=== PATIENT | female | born 1945 | race Caucasian/White ===

== ENCOUNTER → 2018-06-28 14:06 | Outpatient (CLI) | payer MEDICARE, OTHER, SELFPAY ==
--- NOTE | 2018-06-28 | DI.MG.S_ITS ---
BILATERAL DIGITAL SCREENING MAMMOGRAM 3D/2D WITH CAD: 06/28/2018 Comparison is made to exams dated: 06/27/2017 mammogram, 06/26/2016 mammogram, and 06/25/2015 mammogram - [facility]. The tissue of both breasts is predominantly fatty. Current study was also evaluated with a Computer Aided Detection (CAD) system. No significant masses, calcifications, or other findings are seen in either breast. There has been no significant interval change. IMPRESSION: NEGATIVE There is no mammographic evidence of malignancy. A 1 year screening mammogram is recommended. This exam was interpreted at Station ID: [id number]. NOTE: For mammograms, a report in lay terms will be sent to the patient. Approximately 15% of breast malignancies will not be visualized mammographically. In the management of a palpable breast mass, a negative mammogram must not discourage biopsy of a clinically suspicious lesion. Electronically Signed By: Skylar arellano/bubba:06/29/2018 10:25:15 letter sent: Normal Exam ACR BI-RADS Category 1: Negative 3341F
== END ==
PROVIDERS: Family Provider Nurse Practitioner Family; PCP Nurse Practitioner Family; Visit Provider Nurse Practitioner Family
DX: Z12.31 Encounter for screening mammogram for malignant neoplasm of breast (principal)
CPT/HCPCS: 77063; 77067

== ENCOUNTER → 2018-11-16 16:02 | Outpatient (CLI) | payer MEDICARE, OTHER, SELFPAY ==
--- NOTE | 2018-11-16 16:08 | DI.RAD.S_ITS ---
PROCEDURE: XR THORACIC SPINE 3V INDICATIONS: BILATERAL THORACIC BACK PAIN S/P HORSEBACK RIDING NO HISTORY TECHNIQUE: 3 views of the thoracic spine were acquired. COMPARISON: [facility], CT, PE STUDY (CTA CHEST), 05/29/2013, 10:29. FINDINGS: Bones: A fracture of approximately T4 appears chronic. A impression of the superior endplate of T5 is likely acute. Soft tissues: No paravertebral stripe thickening. IMPRESSION: Probable chronic compression fracture of T4. Probable acute compression fracture of T5. Comment: Consider MRI of the thoracic spine to identify acute compression fractures. Dictated by: Shayne Nichols M.D. on 11/16/2018 at 17:40 Approved by: Shayne Nichols M.D. on 11/16/2018 at 17:43
--- NOTE | 2018-11-16 16:10 | DI.RAD.S_ITS ---
PROCEDURE: XR RIBS BI MIN 4V W CXR1V INDICATIONS: BILATERAL THORACIC BACK PAIN S/P HORSEBACK RIDING NO HISTORY TECHNIQUE: 4 views of the left and right ribs were acquired, along with a single view chest. COMPARISON: [facility], , CHEST 1 VIEW, 05/29/2013, 9:14. FINDINGS: Surgical changes and devices: None. Bones and chest wall: Multiple chronic-appearing right rib fractures. No definite acute fracture seen. Lungs and pleura: No pleural effusions or pneumothorax. No acute consolidation. Scattered subsegmental atelectasis and/or scarring . Mediastinum: Mediastinal contours appear normal. Heart size is normal. IMPRESSION: No acute fracture. Multiple radiographically chronic appearing right rib fractures. If clinically indicated, further assessment with noncontrast chest CT could be considered if the patient's symptoms do not improve Dictated by: Jimmy Mota M.D. on 11/17/2018 at 10:02 Approved by: Jimmy Mota M.D. on 11/17/2018 at 10:07
== END ==
PROVIDERS: Visit Provider Nurse Practitioner Family
DX: M54.6 Pain in thoracic spine (principal); S22.41XA Multiple fractures of ribs, right side, initial encounter for closed fracture; S22.049A Unspecified fracture of fourth thoracic vertebra, initial encounter for closed fracture; X58.XXXA Exposure to other specified factors, initial encounter
CPT/HCPCS: 71111; 72072

== ENCOUNTER 2019-03-23 10:42 | Day surgery (SDC) | payer MEDICARE, OTHER, SELFPAY ==
[2019-03-23 11:17] VITALS: BP 150/76; PULSE 67; RESP 17; TEMP 36.8; O2SAT 99; BMI 23.1
[2019-03-23] MEDS: SODIUM CHLORIDE 0.9% 1,000 ML 150 ML IV (11:44)
--- NOTE | 2019-03-23 12:26 | PM.HP.1 ---
History of Present Illness History of Present Illness Date Patient Seen: 03/23/19 Time Patient Seen: 12:26 Chief complaint: [id number] COLONOSCOPY W/POSS Narrative: History of adenomatous colon polyps with a large hepatic flexure polyp found last year. Need for follow-up colonoscopy. Patient History Social History household members: spouse Family & Social History Social History: household members spouse Meds Home Medications and Allergies Home Medications Medication Instructions Recorded Confirmed Type VITAMIN D (Vitamin D3) 1,000 unit PO DAILY #0 12/04/16 03/23/19 History [CALCIUM] 1 tab PO DAILY #0 12/04/16 03/23/19 History aspirin 1 tab PO QDAY #0 12/04/16 03/23/19 History glucosamine sulfate [Genicin] 1,000 mg PO DAILY #0 12/04/16 03/23/19 History simvastatin 1 tab PO QDAY #0 12/04/16 03/23/19 History levothyroxine 100 mcg PO DAILY 03/23/19 03/23/19 History Allergies Allergy/AdvReac Type Severity Reaction Status Date / Time No Known Drug Allergies Allergy Verified 03/22/19 13:37 Exam Vital Signs (past 8 hours): - 03/23/19 11:17 Temperature 98.2 F Pulse Rate 67 Respiratory Rate 17 Blood Pressure 150/76 H Pulse Oximetry 99 Oxygen Delivery Method Room Air Narrative Exam Narrative: Oropharynx free of lesions Chest clear to auscultation percussion Cardiac exam reveals no S3 or murmur Assessment & Plan Assessment & Plan narrative: History of adenomatous colon polyps with a quite large polyp found last year. Need for follow-up colonoscopy. Risks, benefits, alternatives have been explained.
--- NOTE | 2019-03-23 12:28 | PM.OP.ENDO ---
Operative Date/Time/Diagnoses Date of procedure: 03/23/19 Time of procedure: 12:28 Pre-op diagnosis: See indication and findings Procedure & Clinicians Study performed: Colonoscopy Same procedure as scheduled: Yes Indications: History of polyps Surgeon: Deepika De La Vega Procedure Notes Procedure in detail: After informed consent was obtained the patient was placed in the left lateral decubitus position. The video colonoscope was introduced the rectum and slowly advanced to the cecum. On slow withdrawal mucosa was carefully examined. Preparation was good. The scope was removed. The patient tolerated procedure well. Blood loss none Complications none Sedation Total sedation time 18 minutes Versed 5 mg fentanyl 100 micro g IV titration Findings 1. Tattoo from previous large polypectomy at the hepatic flexure seen. No residual polyp 2. Otherwise negative colonoscopy to cecum. Patient needs follow-up colonoscopy in 5 years.
[2019-03-23] MEDS: fentaNYL 250 MCG/5 ML INJ IV (13:07)
[2019-03-23] MEDS: MIDAZOLAM 5 MG/5 ML VIAL IV (13:07)
[2019-03-23 13:10] VITALS: BP 127/61; PULSE 79; RESP 18; TEMP 36.2; O2SAT 97
[2019-03-23 13:35] VITALS: BP 139/82; PULSE 82; RESP 19; TEMP 36.8; O2SAT 96
== END 2019-03-23 13:43 | disposition home or self-care (01) ==
PROVIDERS: PCP Nurse Practitioner Family; Visit Provider Internal Medicine Gastroenterology
PROC: 0DJD8ZZ Inspection of Lower Intestinal Tract, Via Natural or Artificial Opening Endoscopic (ICD-10-PCS; CPT 45378; principal; 2019-03-23 12:30)
DX: Z86.010 Personal history of colon polyps (principal)
CPT/HCPCS: G0105; J2250; J3010

== ENCOUNTER → 2019-05-03 13:36 | Outpatient (CLI) | payer MEDICARE, OTHER, SELFPAY | PROVIDERS: PCP Nurse Practitioner Family; Visit Provider Nurse Practitioner Family | DX: M85.852 Other specified disorders of bone density and structure, left thigh (principal); Z78.0 Asymptomatic menopausal state; E07.9 Disorder of thyroid, unspecified; E67.3 Hypervitaminosis D; Z82.62 Family history of osteoporosis | CPT/HCPCS: 77080 ==

== ENCOUNTER → 2019-07-14 11:22 | Outpatient (CLI) | payer MEDICARE, OTHER, SELFPAY ==
--- NOTE | 2019-07-14 | DI.MG.S_ITS ---
BILATERAL DIGITAL SCREENING MAMMOGRAM 3D/2D WITH CAD: 07/14/2019 CLINICAL: Routine screening. Comparison is made to exams dated: 06/28/2018 mammogram, 06/27/2017 mammogram, 06/26/2016 mammogram, 06/25/2015 mammogram, 06/02/2014 mammogram - [facility], and 05/19/2011 mammogram - [facility]. The tissue of both breasts is predominantly fatty. Current study was also evaluated with a Computer Aided Detection (CAD) system. No significant masses, calcifications, or other findings are seen in either breast. There has been no significant interval change. IMPRESSION: NEGATIVE There is no mammographic evidence of malignancy. A 1 year screening mammogram is recommended. This exam was interpreted at Station ID: [id number]. NOTE: For mammograms, a report in lay terms will be sent to the patient. Approximately 15% of breast malignancies will not be visualized mammographically. In the management of a palpable breast mass, a negative mammogram must not discourage biopsy of a clinically suspicious lesion. Electronically Signed By: Antonio pacheco/bubba:07/15/2019 13:39:38 letter sent: Normal Exam ACR BI-RADS Category 1: Negative 3341F
== END ==
PROVIDERS: PCP Nurse Practitioner Family; Visit Provider Nurse Practitioner Family
DX: Z12.31 Encounter for screening mammogram for malignant neoplasm of breast (principal)
CPT/HCPCS: 77063; 77067

== ENCOUNTER → 2020-07-20 08:14 | Outpatient (CLI) | payer MEDICARE, OTHER, SELFPAY ==
--- NOTE | 2020-07-20 | DI.MG.S_ITS ---
BILATERAL DIGITAL SCREENING MAMMOGRAM 3D/2D WITH CAD: 07/20/2020 CLINICAL: Routine screening. Comparison is made to exams dated: 07/14/2019 mammogram, 06/28/2018 mammogram, and 06/27/2017 mammogram - [facility]. There are scattered fibroglandular elements in both breasts. Current study was also evaluated with a Computer Aided Detection (CAD) system. No significant masses, calcifications, or other findings are seen in either breast. There has been no significant interval change. IMPRESSION: NEGATIVE There is no mammographic evidence of malignancy. A 1 year screening mammogram is recommended. This exam was interpreted at Station ID: [id number]. NOTE: For mammograms, a report in lay terms will be sent to the patient. Approximately 15% of breast malignancies will not be visualized mammographically. In the management of a palpable breast mass, a negative mammogram must not discourage biopsy of a clinically suspicious lesion. Electronically Signed By: Umberto fragoso/bubba:07/20/2020 08:56:21 letter sent: Normal Exam ACR BI-RADS Category 1: Negative 3341F
== END ==
PROVIDERS: PCP Student in an Organized Health Care Education/Training Program; Referring Provider Student in an Organized Health Care Education/Training Program; Visit Provider Student in an Organized Health Care Education/Training Program
DX: Z12.31 Encounter for screening mammogram for malignant neoplasm of breast (principal)
CPT/HCPCS: 77063; 77067

== ENCOUNTER → 2020-11-15 09:53 | Outpatient (CLI) | payer MEDICARE, OTHER, SELFPAY ==
--- NOTE | 2020-11-15 10:55 | DIET.PN ---
Nutrition Initial Assessment:? ASSESS:???Ms. Guan is a 75 yof referred for long standing hx of pre-diabetes. She reports regular moderate-intense exercise including rowing and speed walking and healthy eating habits. Admits to having a sweet tooth. She has countied calories in the past, but does not often pay attention to carbs/sugar. She monitors her blood glucose periodically with typical readings between 80-110. ? LABS: Per pt report:? A1c: 6.1 (6.3 at dx) ? MEDS:?? n/a ? DIET: Per 24-hour recall:? B: sourdough toast w/ butter L: 1 cup chicken salad sandw or PB J sandw D: asparagus and potato soup Sn: fruit, crackers, smoothies ? Weight: 143 lb UBW: 135lb Ht:? 66 in BMI: 42.7 ? Exercise:?rowing, walking NUTRITION DX 1. Altered Nutrition related labs related to impaired glucose metabolism, lack of previous exposure to accurate nutrition information as evidenced by pt report, dx of pre-diabetes, previous diet high in refined carbohydrates.? INTERVENTION(s): 1. Discussed pathophysiology of diabetes/hyperglycemia and impact of nutrition/diet on blood sugar control.? 2. Discussed the effect of carbohydrates/protein/fat on blood sugar control.? Stressed importance of consistent carbohydrate intake at each meal and provided instructions for recommended servings/portions of carbohydrates/protein per meal. Provided pt with educational material. 3. Reviewed carbohydrate counting and measuring carbohydrate content via serving sizes and reading nutrition labels.? Provided handouts.?? 4. Discussed the difference between simple versus complex carbohydrates and the effect of fiber on blood sugar control.? Discussed various methods to increase fiber content in diet. 5. Stressed importance of meal timing and not going >4-5 hours between meals. Encouraged adding protein to snacks to support glucose control and prevent hunger. Discussed various snack options. 6. Discussed importance of food preparation to encourage healthy eating, portion control, and prevent hunger/over snacking. Compiled a list of grab and go foods for breakfast and snack ideas. 7. Discussed healthy weight loss goals of 1-2lbs per week through diet and exercise.? Pt agreeable to keeping a daily food record including portions. Goals: 1. Pt goal to maintain A1c <6.0 without the use of medications. Agrees to dietary improvements, carb counting, and limiting sugary snacks. MONITOR/EVALUATE: Anticipate excellent compliance.? Pt will follow up following new labs.
== END ==
PROVIDERS: PCP Student in an Organized Health Care Education/Training Program; Referring Provider Student in an Organized Health Care Education/Training Program; Visit Provider Student in an Organized Health Care Education/Training Program
DX: R73.03 Prediabetes (principal)
CPT/HCPCS: 97802

== ENCOUNTER → 2021-05-31 11:03 | Outpatient (CLI) | payer MEDICARE, OTHER, SELFPAY ==
--- NOTE | 2021-05-31 11:31 | DI.RAD.S_ITS ---
PROCEDURE: XR DEXA AXIAL SKELETON INDICATIONS: Osteoporosis COMPARISON: [facility], CR, XR DEXA AXIAL SKELETON, 05/03/2019, 14:17. FINDINGS: This blank DEXA report has been sent in error by the PACS system. The correct and complete report will be forthcoming in 1-2 days. Thank you for your patience and understanding. Dictated by: Samara Gordon MD, PhD on 05/31/2021 at 16:19 Approved by: Samara Gordon MD, PhD on 05/31/2021 at 16:19
== END ==
PROVIDERS: PCP Student in an Organized Health Care Education/Training Program; Referring Provider Family Medicine; Visit Provider Family Medicine
DX: M81.0 Age-related osteoporosis without current pathological fracture (principal); Z78.0 Asymptomatic menopausal state; E07.9 Disorder of thyroid, unspecified; Z82.62 Family history of osteoporosis
CPT/HCPCS: 77080; 77081

== ENCOUNTER → 2022-05-20 15:06 | Outpatient (CLI) | payer MEDICARE, OTHER, SELFPAY | PROVIDERS: PCP Student in an Organized Health Care Education/Training Program; Referring Provider Internal Medicine; Visit Provider Internal Medicine | DX: Z78.0 Asymptomatic menopausal state (principal); M81.0 Age-related osteoporosis without current pathological fracture; Z79.83 Long term (current) use of bisphosphonates | CPT/HCPCS: 77080 ==

== ENCOUNTER → 2022-07-29 10:59 | Outpatient (CLI) | payer MEDICARE, OTHER, SELFPAY ==
--- NOTE | 2022-07-29 | DI.MG.S_ITS ---
BILATERAL DIGITAL SCREENING MAMMOGRAM 3D/2D WITH CAD: 07/29/2022 CLINICAL: Routine screening. Comparison is made to exams dated: 07/20/2020 mammogram, 07/14/2019 mammogram, and 06/28/2018 mammogram - [facility]. There are scattered areas of fibroglandular density in both breasts (category b / 25%-50% glandular tissue). Current study was also evaluated with a Computer Aided Detection (CAD) system. No significant masses, calcifications, or other findings are seen in either breast. There has been no significant interval change. IMPRESSION: NEGATIVE There is no mammographic evidence of malignancy. A 1 year screening mammogram is recommended. Based on the Tyrer Cuzick model (a risk assessment model) the patient's lifetime risk is 3.6% and her 10 year risk is 0.0%. According to the ACR, ACS, and NCCN guidelines, an annual breast MRI exam along with mammogram is recommended if the patient's lifetime risk is 20% or greater. This exam was interpreted at Station ID: [id number]. NOTE: For mammograms, a report in lay terms will be sent to the patient. Approximately 15% of breast malignancies will not be visualized mammographically. In the management of a palpable breast mass, a negative mammogram must not discourage biopsy of a clinically suspicious lesion. Electronically Signed By: Ran gonzalez/bubba:07/29/2022 17:39:45 letter sent: Normal Exam ACR BI-RADS Category 1: Negative 3341F
== END ==
PROVIDERS: PCP Family Medicine; Referring Provider Family Medicine; Visit Provider Family Medicine
DX: Z12.31 Encounter for screening mammogram for malignant neoplasm of breast (principal)
CPT/HCPCS: 77063; 77067

== ENCOUNTER → 2023-06-16 12:31 | Outpatient (CLI) | payer MEDICARE, OTHER, SELFPAY ==
--- NOTE | 2023-06-16 | DI.RAD.S_ITS ---
PROCEDURE: XR CHEST 2V INDICATIONS: COUGH TECHNIQUE: 2 views of the chest were acquired. COMPARISON: [facility], , CHEST 1 VIEW, 05/29/2013, 9:14. FINDINGS: Surgical changes and devices: None. Lungs and pleura: Lungs are clear. No pleural effusions or pneumothorax. Mediastinum: Mediastinal contours are normal. Heart size is normal. Bones and chest wall: No suspicious bony abnormalities. Anterior wedge compression deformities of midthoracic vertebral bodies. Soft tissues appear unremarkable. IMPRESSION: No acute cardiopulmonary abnormality is seen. Anterior wedge compression deformities of midthoracic vertebral bodies, if concern for acute fracture, correlate for point tenderness or consider MRI. Dictated by: Rakesh Grady M.D. on 06/16/2023 at 14:06 Approved by: Rakesh Grady M.D. on 06/16/2023 at 14:25
== END ==
PROVIDERS: PCP Family Medicine; Referring Provider Internal Medicine; Visit Provider Internal Medicine
DX: R05.3 Chronic cough (principal); M43.8X4 Other specified deforming dorsopathies, thoracic region
CPT/HCPCS: 71046

== ENCOUNTER → 2023-07-31 16:47 | Outpatient (CLI) | payer MEDICARE, OTHER, SELFPAY ==
--- NOTE | 2023-07-31 16:51 | DI.MG.S_ITS ---
BILATERAL DIGITAL SCREENING MAMMOGRAM 3D/2D WITH CAD: 07/31/2023 CLINICAL: Routine screening. Comparison is made to exams dated: 07/29/2022 mammogram, 07/20/2020 mammogram, and 07/14/2019 mammogram - [facility]. There are scattered areas of fibroglandular density in both breasts (category b / 25%-50% glandular tissue). Current study was also evaluated with a Computer Aided Detection (CAD) system. No significant masses, calcifications, or other findings are seen in either breast. There has been no significant interval change. IMPRESSION: NEGATIVE There is no mammographic evidence of malignancy. A 1 year screening mammogram is recommended. Based on the Tyrer Cuzick model (a risk assessment model) the patient's lifetime risk is 3.2% and her 10 year risk is 0.0%. According to the ACR, ACS, and NCCN guidelines, an annual breast MRI exam along with mammogram is recommended if the patient's lifetime risk is 20% or greater. This exam was interpreted at Station ID: [id number]. NOTE: For mammograms, a report in lay terms will be sent to the patient. Approximately 15% of breast malignancies will not be visualized mammographically. In the management of a palpable breast mass, a negative mammogram must not discourage biopsy of a clinically suspicious lesion. Electronically Signed By: Ran gonzalez/bubba:08/03/2023 07:41:52 letter sent: Normal Exam ACR BI-RADS Category 1: Negative 3341F
== END ==
LOC: MAMMO 16:50
PROVIDERS: PCP Family Medicine; Referring Provider Internal Medicine; Visit Provider Internal Medicine
DX: Z12.31 Encounter for screening mammogram for malignant neoplasm of breast (principal)
CPT/HCPCS: 77063; 77067

== ENCOUNTER → 2024-07-22 09:09 | Outpatient (CLI) | payer MEDICARE, OTHER, SELFPAY ==
[2024-07-22 09:52] LABS: Add Manual Diff / Slide Review NO; Basophils Absolute Auto 0 /uL (0-100); Basophils Percent Auto 0.4 % (0-2); Eosinophils Absolute Auto 100 /uL (0-450); Eosinophils Percent Auto 2.2 % (2-4); Hematocrit 40.1 % (36-46); Hemoglobin 13.5 g/dL (12.0-16.0); Lymphocytes Absolute Auto 1900 /uL (1100-4500); Lymphocytes Percent Auto 33.9 % (25-40); Mean Corpuscular HGB Conc 33.7 % (30-36); Mean Corpuscular Hemoglobin 31.7 PG (26-34); Monocytes Absolute Auto 700 /uL (0-900); Monocytes Percent Auto 11.4 % (3-14); Neutrophils Absolute Auto 3000 /uL (1500-7000); Neutrophils Percent Auto 52.1 % (50-75); Platelet Count 197 X10^3/uL (150-400); Red Blood Cell Count 4.26 X10^6/uL (4.0-5.2); Red Cell Distribution Width 14.4 % (11.6-14.8); White Blood Cell Count 5.7 X10^3/uL (4.5-11.0)
[2024-07-22 10:19] LABS: Alanine Aminotransferase 19 IU/L (<35); Albumin Globulin Ratio 1.4 (1.0-2.8); Alkaline Phosphatase 50 U/L (38-126); Aspartate Aminotransferase 29 IU/L (14-36); BUN Creatinine Ratio 21.8 (6-22); Bilirubin Total 0.9 mg/dL (0.2-1.3); Blood Urea Nitrogen 19 mg/dL (7-17); Calcium 9.4 mg/dL (8.4-10.2); Carbon Dioxide 28 mmol/L (22-32); Chloride 105 mmol/L (98-107); Cholesterol 186 mg/dL (140-199); Estimated Glomerular Filt Rate > 60 mL/min (>60); Globulin 2.9 g/dL (1.7-4.1); Glucose 90 mg/dL (80-110); HDL Cholesterol 74 mg/dL (40-60); HEMOLYSIS < 15 (0-50); LDL Cholesterol Calculated 99 mg/dL (<100); Potassium 4.7 mmol/L (3.4-5.1); Sodium 136 mmol/L (137-145); Total Protein 6.9 g/dL (6.3-8.2); Triglycerides 67 mg/dL (35-150)
[2024-07-22 11:22] LABS: Free T3, Triiodothyronine Free 3.09 pg/mL (2.77-5.27); Free T4, Direct Thyroxine 1.65 ng/dL (0.78-2.19)
[2024-07-22 11:36] LABS: Thyroid Stimulating Hormone 1.31 uIU/mL (0.47-4.68)
== END ==
PROVIDERS: PCP Student in an Organized Health Care Education/Training Program; Referring Provider Student in an Organized Health Care Education/Training Program; Visit Provider Student in an Organized Health Care Education/Training Program
DX: I10 Essential (primary) hypertension (principal)
CPT/HCPCS: 36415; 80053; 80061; 84439; 84443; 84481; 85025

== ENCOUNTER → 2024-08-08 10:52 | Outpatient (CLI) | payer MEDICARE, OTHER, SELFPAY ==
--- NOTE | 2024-08-08 10:56 | DI.RAD.S_ITS ---
PROCEDURE: XR DEXA AXIAL SKELETON INDICATIONS: Hx of osteopenia COMPARISON: [facility], , XR DEXA AXIAL SKELETON, 05/20/2022, 16:30. [facility], CR, XR DEXA AXIAL SKELETON, 05/31/2021, 11:33. FINDINGS: Lumbar Spine (L2 excluded): Bone mineral density 1.130 g/cm2, T score 0.7, previously 0.5. Left Femoral Neck: Bone mineral density 0.607 g/cm2, T score -2.2. Left Hip: Bone mineral density 0.812 g/cm2, T score -1.1, previously -1.0. Fracture Risk Calculation (when applicable): Secondary osteoporosis noted . 10-year fracture risk of a major osteoporotic fracture 15 percent and of a hip fracture 4.8 percent. (T score greater or equal to -1.0 to: NORMAL) (T score from -1.1 to -2.4: OSTEOPENIA) (T score less than or equal to -2.5: OSTEOPOROSIS) IMPRESSION: Osteopenia . Follow-up guidelines as follows: Osteoporosis: Consider a repeat DEXA and Vertebral Fracture Assessment (VFA) exam in 2 years or sooner if medically necessary, to reassess this patient's status. Osteopenia: Consider a repeat DEXA in 2-3 years to reassess this patient's status, or if there is a new clinical indication. Normal: Consider a repeat DEXA in 5 years or sooner, or if there is a new clinical indication. All treatment decisions require clinical judgment and consideration of individual patient factors, including patient preferences, comorbidities, previous drug use, risk factors not captured in the FRAX model (e.g., frailty, falls, vitamin D deficiency, increased bone turnover, interval significant decline in bone density ) and possible under- or over-estimation of fracture risk by FRAX. In addition, the NOF Guide recommends that FDA-approved medical therapies be considered in postmenopausal women and men age >= 50 years with a: * Hip or vertebral (clinical or morphometric) fracture * T-score of <=-2.5 at the spine or hip * Ten-year fracture probability by FRAX of >= 3% for hip fracture or >=20% for major osteoporotic fracture. Dictated by: Reji Hoffman M.D. on 08/08/2024 at 14:47 Approved by: Reji Hoffman M.D. on 08/08/2024 at 14:53
--- NOTE | 2024-08-08 11:11 | DI.MG.S_ITS ---
BILATERAL DIGITAL SCREENING MAMMOGRAM 3D/2D WITH CAD: 08/08/2024 CLINICAL: Routine screening. Comparison is made to exams dated: 07/31/2023 mammogram, 07/29/2022 mammogram, and 07/20/2020 mammogram - [facility]. There are scattered areas of fibroglandular density (category b / 25%-50% glandular tissue). Current study was also evaluated with a Computer Aided Detection (CAD) system. No significant masses, calcifications, or other findings are seen in either breast. There has been no significant interval change. IMPRESSION: NEGATIVE There is no mammographic evidence of malignancy. A 1 year screening mammogram is recommended. Based on the Tyrer Cuzick model (a risk assessment model) the patient's lifetime risk is 2.8% and her 10 year risk is 0.0%. According to the ACR, ACS, and NCCN guidelines, an annual breast MRI exam along with mammogram is recommended if the patient's lifetime risk is 20% or greater. This exam was interpreted at Station ID: [id number]. NOTE: For mammograms, a report in lay terms will be sent to the patient. Approximately 15% of breast malignancies will not be visualized mammographically. In the management of a palpable breast mass, a negative mammogram must not discourage biopsy of a clinically suspicious lesion. Electronically Signed By: Ran gonzalez/bubba:08/08/2024 16:34:25 letter sent: Normal Exam ACR BI-RADS Category 1: Negative
== END ==
LOC: MAMMO 10:56
PROVIDERS: PCP Student in an Organized Health Care Education/Training Program; Referring Provider Student in an Organized Health Care Education/Training Program; Visit Provider Student in an Organized Health Care Education/Training Program
DX: Z12.31 Encounter for screening mammogram for malignant neoplasm of breast (principal); M85.852 Other specified disorders of bone density and structure, left thigh
CPT/HCPCS: 77063; 77067; 77080

== ENCOUNTER 2024-08-15 09:29 | Day surgery (SDC) | payer MEDICARE, OTHER, SELFPAY ==
[2024-08-15 10:37] VITALS: BP 148/80; PULSE 90; RESP 16; TEMP 36.1; O2SAT 99
--- NOTE | 2024-08-15 10:56 | P.HP_ITS ---
History of Present Illness History of Present Illness Date Patient Seen: 08/15/24 Time Patient Seen: 10:56 Chief complaint: Screening Colonoscopy Narrative: 79-year-old white female with past history of multiple polyps. No changes in health or bowel movements. [facility] Medical History (Updated 08/15/24 @ 10:57 by José Bueno MD) Personal history of colonic polyps Dry skin Scoliosis Osteoporosis Osteopenia Fractures Malaria (~1969) Chicken pox Cataracts, bilateral Painful menstrual periods Heavy menstrual period GERD (gastroesophageal reflux disease) Skin cancer Hypothyroidism Surgical History Anesthesia History of cataract removal with insertion of prosthetic lens (~2016) History of section (~03/25/81) Family History Father History of heart disease Mother Cancer Grandmother Stroke Grandfather History of heart disease Daughter Food allergy Social History household members: spouse Smoking Status: Never smoker alcohol intake: current Meds Home Medications and Allergies Home Medications Medication Instructions Recorded Confirmed Type VITAMIN D (Vitamin D3) 1,000 unit PO DAILY ##0 12/04/17 07/22/24 History [CALCIUM] 2 tab PO DAILY ##0 07/22/24 History alendronate 70 mg tablet 70 mg PO QWEEK 07/22/24 07/22/24 History atorvastatin 20 mg tablet 20 mg PO DAILY 07/22/24 07/22/24 History glucosamine sulfate 500 mg capsule 500 mg PO DAILY #0 caps 07/22/24 07/22/24 History (Genicin) levothyroxine 100 mcg tablet 88 mcg PO DAILY 07/22/24 07/22/24 History lisinopril 10 mg tablet 10 mg PO DAILY 07/22/24 07/22/24 History sodium,potassium,mag sulfates 17.5 See Rx Instructions PO .COMPLEX 07/27/24 Rx gram-3.13 gram-1.6 gram oral soln #354 mL (Suprep Bowel Prep Kit) Allergies Allergy/AdvReac Type Severity Reaction Status Date / Time No Known Drug Allergies Allergy Verified 08/15/24 10:34 Review of Systems Review of Systems ROS: Yes All systems reviewed with the patient and are negative except as otherwise documented Exam Vital Signs (past 8 hours): - 08/15/24 10:37 Temperature 97 F L Pulse Rate 90 Respiratory Rate 16 Blood Pressure 148/80 H Pulse Oximetry 99 Oxygen Delivery Method Room Air Oxygen Delivery Method Room Air Narrative Exam Narrative: Gen: NAD, sitting comfortably in bed, appears well HEENT: Sclera are anicteric, head is normocephalic and atraumatic, trachea is midline. CV: RRR, no JVD Resp: clear to auscultation bilaterally, equal chest wall movement bilaterally Abd: soft, nontender, normoactive bowel sounds Ext: no edema, full range of motion Neuro: Cranial nerves II-XII grossly intact, no focal deficits Skin: No erythema or ecchymosis Assessment & Plan Assessment and plan (1) Personal history of colonic polyps: Status: Acute Assessment & Plan narrative: Patient presents for colonoscopy Risks, benefits, alternatives to colonoscopy explained, including but not limited to bowel perforation or other serious complication requiring surgery at less than 1 in 5000 colonoscopies, abdominal pain, cramping or bleeding and less than 1% of colonoscopies, and the chances that we find a diagnosis that would require further intervention of about 2%. Patient agrees to proceed. Time-Based Coding :: [TOTAL MINUTES] spent with patient and on the chart (including review of chart, obtaining history, exam, reviewing outside data, placing orders, documenting exam and treatment plan, and counseling patient) on [DATE]. PROFEE Sales Service Technician Document charge(s): No
--- NOTE | 2024-08-15 11:45 | PM.OP.COLON ---
Operative Date/Time/Diagnoses Date of procedure: 08/15/24 Time of procedure: 11:45 Pre-op diagnosis: Personal history of polyps Post-op diagnosis: other (Normal colonoscopy) Procedure & Clinicians Study performed: Colonoscopy Same procedure as scheduled: Yes Indications: Personal history of polyps Surgeon: José Bueno Procedure Notes SCOAP/Timeout: Performed Procedure in detail: Time-out was performed. Mac was induced. Patient was placed in left lateral decubitus position. The perineum was inspected without any gross abnormality. Lubricated pediatric colonoscope was inserted and advanced to the cecum. Was technically difficult due to tortuosity near the hepatic flexure that required both a stiffening wire and repositioning of the patient 1st supine position which was unsuccessful and then to the prone position which allowed successful intubation of the cecum and terminal ileum. The terminal ileum was intubated. The colonoscope was withdrawn slowly inspecting the circumference of the colon. Very small polyps may have been missed, prep quality was adequate. Retroflexed view of the rectum showed small, non prolapsed nonbleeding internal hemorrhoids. The scope was withdrawn the patient was taken to PACU in good condition. Scope withdrawal time: 6 Sedation minutes: 35 Specimen(s): none sent Complications: none Impression: Normal colonoscopy Post-procedure Recommendations: Colonoscopy in 10 years (Patient would be 89 in 10 years, likely no future colonoscopy is required.) Follow up: as needed Disposition: PACU
[2024-08-15 11:50] VITALS: BP 95/59; PULSE 81; RESP 18; TEMP 36.4; O2SAT 96
[2024-08-15 12:05] VITALS: BP 105/69; PULSE 85; RESP 20; TEMP 36.6; O2SAT 98
== END 2024-08-15 12:30 | disposition home or self-care (01) ==
PROVIDERS: PCP Student in an Organized Health Care Education/Training Program; Referring Provider Surgery; Visit Provider Surgery
PROC: 0DJD8ZZ Inspection of Lower Intestinal Tract, Via Natural or Artificial Opening Endoscopic (ICD-10-PCS; CPT 45378; principal; 2024-08-15 10:30)
DX: Z12.11 Encounter for screening for malignant neoplasm of colon (principal); Z86.0100 Personal history of colon polyps, unspecified
CPT/HCPCS: G0105; J2704

== ENCOUNTER → 2025-04-27 10:34 | Outpatient (CLI) | payer MEDICARE, OTHER, SELFPAY ==
--- NOTE | 2025-04-27 10:37 | DI.RAD.S_ITS ---
PROCEDURE: XR CHEST 2V INDICATIONS: concern for rib fracture TECHNIQUE: 2 views of the chest were acquired. COMPARISON: [facility], CR, XR CHEST 2V, 06/16/2023, 13:10. FINDINGS AND IMPRESSION: No definite pneumothorax is seen. Mild osseous deformities are seen in the right lateral mid ribs, though these may have been present previously. Correlate with location of tenderness. Unchanged cardiomediastinal contours. Height loss of multiple thoracic vertebral bodies, age-indeterminate, likely also present previously Dictated by: Rey Naqvi M.D. on 04/27/2025 at 11:13 Approved by: Rey Naqvi M.D. on 04/27/2025 at 11:15
== END ==
PROVIDERS: PCP Student in an Organized Health Care Education/Training Program; Referring Provider Student in an Organized Health Care Education/Training Program; Visit Provider Student in an Organized Health Care Education/Training Program
DX: R07.89 Other chest pain (principal); M95.4 Acquired deformity of chest and rib
CPT/HCPCS: 71046

== ENCOUNTER → 2025-05-10 14:32 | Outpatient (CLI) | payer MEDICARE, OTHER, SELFPAY ==
--- NOTE | 2025-05-10 14:34 | DI.CT.S_ITS ---
PROCEDURE: CT CHEST W CON INDICATIONS: Abnormal chest xray with rib fractures and midthoracic spine compression fractures. The patient reported no recent trauma, and fall from horse 20 years ago with resultant rib fractures. TECHNIQUE: After the administration of intravenous contrast, 5 mm thick sections acquired from the pulmonary apices to the posterior costophrenic angles. 1 mm axial lung, 5 mm thick coronal and sagittal reformats and 7 mm axial MIP were acquired. For radiation dose reduction, the following was used: automated exposure control, adjustment of mA and/or kV according to patient size. COMPARISON: [facility], , XR CHEST 2V, 04/27/2025, 10:35. FINDINGS: Image quality: Diagnostic. Lower Neck: No enlarged lymph nodes. Thyroid: No thyroid nodules which require sonographic follow up, per consensus guidelines. Axillae: No enlarged lymph nodes. Chest Wall: Chronic healed posterior and posterolateral right-sided rib fractures, and also midthoracic wedge type chronic appearing compression fractures without significant spinal stenosis associated. Bones: Unremarkable. Lungs and Pleura: No pneumothorax or pleural effusions. No consolidation or suspicious nodules. Heart: Heart size is normal. No pericardial effusion. Thoracic Vessels: The aorta and pulmonary arteries demonstrate normal size. Mediastinum and Tanisha: No enlarged lymph nodes. Esophagus: No wall thickening. No hiatal hernia. Upper Abdomen: Visualized upper abdomen solid organs and bowel loops appear normal without visualized evidence of hydronephrosis or nephrolithiasis. Only a portion of the kidneys are included in this study. IMPRESSION: Old right rib and thoracic spine fractures, healed, no acute disease. Dictated by: Jesse Nash M.D. on 05/11/2025 at 9:35 Approved by: Jesse Nash M.D. on 05/11/2025 at 9:44
[2025-05-10 15:04] LABS: Estimated Glomerular Filt Rate > 60 mL/min (>60)
== END ==
PROVIDERS: PCP Student in an Organized Health Care Education/Training Program; Referring Provider Student in an Organized Health Care Education/Training Program; Visit Provider Student in an Organized Health Care Education/Training Program
DX: R07.89 Other chest pain (principal); S22.41XS Multiple fractures of ribs, right side, sequela; S22.000S Wedge compression fracture of unspecified thoracic vertebra, sequela
CPT/HCPCS: 36415; 71260; 82565; Q9967